=== PATIENT | male | born 1950 | race Caucasian/White ===

== ENCOUNTER 2020-04-19 18:12 | Observation (INO) | payer MEDICARE, SELFPAY ==
[2020-04-19] VITALS (10 sets, daily range): BP systolic 131–168; BP diastolic 85–107; PULSE 89–119; RESP 15–33; TEMP 36.9–37.6; O2SAT 96–99; BMI 26.9
--- NOTE | 2020-04-19 18:47 | ED_ITS ---
HPI - Male Genitourinary General Chief complaint: Urogenital-Male Stated complaint: difficulty going to pee Time Seen by Provider: 04/19/20 18:37 Source: patient and family Mode of arrival: Wheelchair Limitations: no limitations History of Present Illness HPI Narrative: Patient is a 69-year-old male with history of MS who is not currently being treated he is noncompliant with any medical problem he has presenting today with urinary retention. His daughter in-law who is also under states that he has had painful frequent urination. He last urinated around noon. He started having increasing abdominal pain and she brought him here to the emergency department bladder scan confirms about 900. Patient really denies any symptoms however [id number] states that he started taking amoxicillin family member gave it to him 3 days ago he has had 3 days of 500 3 times a day. Currently tachycardic afebrile and no complaints. Caregiver states that he lives alone and he does have family members twice a week who are able to help him. Since he began getting ill he has had significant increased weakness especially in his upper body. She reports him sitting on the toilet for more than 5 hours already once this week. Complaint: dysuria and other (Urinary retention) Onset (ago): day(s) (3) Related Data Previous Rx's Medication Instructions Recorded interferon beta-1a [Avonex] 30 mcg IM QWEEK #3 kit 03/15/17 Allergies Allergy/AdvReac Type Severity Reaction Status Date / Time No Known Drug Allergies Allergy Verified 04/19/20 18:35 Review of Systems Review of Systems Narrative: GENERAL: Denies chills, fatigue, malaise, fever, sweats, travel HEENT: Denies sinus pain, ear pain, sore throat, difficulty swallowing, neck pain RESPIRATORY: Denies dyspnea, cough, wheezing, hemoptysis, sputum. CARDIOVASCULAR: Denies chest pain, palpitations, orthopnea, edema GASTROINTESTINAL: Denies nausea, vomiting, abdominal pain, diarrhea, constipation, melena. see HPI MUSCULOSKELETAL: Denies weakness, joint pain, or bony pain SKIN: No rash, no erythema, no pruritus NEUROLOGIC: Denies weakness, dizziness, headache, numbness, change in speech, confusion PSYCHIATRIC: No concerning psychosocial issues. 12 point review of systems is negative except for those stated above and HPI Patient History Medical History (Updated 04/19/20 @ 23:24 [facility] Borderline hypertension Multiple sclerosis Surgical History (Updated 04/19/20 @ 23:24 by DENISE Gallegos) History of tonsillectomy Family History (Updated 04/19/20 @ 23:26 [facility] Mother Heart disease Father Natural of unknown etiology Social History household members: none Smoking Status: Never smoker Smoking Status: Never smoker alcohol intake frequency: other Substance Use Type: does not use Exam Initial Vital Signs Initial Vital Signs: Vital Signs Temperature 99.7 F H 04/19/20 18:32 Pulse Rate 119 H 04/19/20 18:32 Respiratory Rate 22 04/19/20 18:32 Blood Pressure 168/107 H 04/19/20 18:32 Pulse Oximetry 97 04/19/20 18:32 GENERAL: Alert pleasant 69-year-old male and in no acute distress. HEENT: Head atraumatic,EOMI, pupils reactive, face symmetric, moist mucous membranes CARDIOVASCULAR: Regular rate and rhythm without murmurs, rubs or gallops. RESPIRATORY: Breath sounds equal bilaterally, no wheezes rales or rhonchi. ABDOMEN: Soft, nontender. Normoactive bowel sounds all 4 quadrants. No guarding or rebound. : Le catheter now in place EXTREMITIES: Normal range of motion, no clubbing or edema. Neurovascularly intact NEUROLOGICAL: Alert and oriented x4.Normal gait and speech. Cranial nerves II through XII grossly intact. SKIN: Warm, dry, no laceration, no petechiae, no rashes or lesions. Course Orders Ordered: ED Orders 04/19/20 18:46 XR chest 1V Stat 04/19/20 18:51 COVID19 Stat Complete Blood Count AUTO DIFF Stat Comprehensive Metabolic Panel Stat Lactate (Lactic Acid) Stat Lipase Stat Partial Thromboplastin Time Stat Procalcitonin Stat Prothrombin Time INR Stat Troponin & CK Cardiac Panel Stat Urinalysis and Microscopic Stat Urine Culture Stat EKG-12 Lead Stat 04/19/20 19:19 Blood Culture Stat 04/19/20 21:24 Education, smoking cessation ONGOING Acetaminophen (Acetaminophen 325 Mg Tablet) 650 mg PO Q6HR PRN PRN Reason: Fever/Mild Pain (1-3) Enoxaparin Sodium (Enoxaparin 40 Mg/0.4 Ml Syringe) 40 mg SUBCUT DAILY ANGIE Sodium Chloride (Normal Saline 0.9%) 1,000 mls @ 100 mls/hr IV CONT ANGIE Last Admin: 04/19/20 22:47 Dose: 100 mls/hr Documented by: MARIA INES Ceftriaxone Sodium/Dextrose (Rocephin) 1 gm in 50 mls @ 100 mls/hr IV Q24H ANGIE Naloxone HCl (Naloxone 0.4 Mg/Ml Vial) 0.2 mg IV Q2MIN PRN PRN Reason: Opiate Reversal Ondansetron HCl (Ondansetron 4 Mg Odt) 4 mg PO Q8HR PRN PRN Reason: Nausea And Vomiting Sennosides (Sennosides 8.6 Mg Tablet) 17.2 mg PO BEDTIME ANGIE Discontinued Medications Sodium Chloride (Normal Saline 0.9%) 1,000 mls @ 1,000 mls/hr IV BOLUS ONE Stop: 04/19/20 19:34 Last Infusion: 04/19/20 20:33 Dose: 0 mls/hr Documented by: Admin: 04/19/20 19:14 Dose: 1,000 mls/hr Documented by: ELEAZAR Ceftriaxone Sodium/Dextrose (Rocephin) 1 gm in 50 mls @ 100 mls/hr IV NOW ONE Stop: 04/19/20 20:03 Last Infusion: 04/19/20 20:55 Dose: 0 mls/hr Documented by: Admin: 04/19/20 20:19 Dose: 100 mls/hr Documented by: ELEAZAR Vital Signs Vital signs: Vital Signs - 8 hr 04/19/20 18:32 04/19/20 19:15 04/19/20 19:30 Temperature 99.7 F H Pulse Rate 119 H 102 H 102 H Respiratory Rate 22 23 33 H Blood Pressure 168/107 H 155/104 H Pulse Oximetry 97 96 97 04/19/20 19:35 04/19/20 20:00 04/19/20 20:30 Temperature Pulse Rate 97 H 89 89 Respiratory Rate 19 17 16 Blood Pressure 161/85 H 150/97 H 154/96 H Pulse Oximetry 98 99 99 04/19/20 21:00 Temperature Pulse Rate 91 H Respiratory Rate 15 Blood Pressure 159/100 H Pulse Oximetry 98 MDM - Male Genitourinary Lab Data Attestation: I reviewed the patient's lab results. Result diagrams: 04/19/20 18:51 04/19/20 18:51 Labs: Lab Results 04/19/20 04/19/20 04/19/20 Range/Units 18:51 18:51 18:51 WBC 11.4 H (4.5-11.0) X10^3/uL RBC 5.12 (4.5-5.9) X10^6/uL Hgb 15.3 (13.5-17.5) g/dL Hct 45.3 (41-53) % MCV 88.5 (80-100) fL MCH 29.8 (26-34) PG MCHC 33.7 (30-36) % RDW 13.3 (11.6-14.8) % Plt Count 346 (150-400) X10^3/uL Neut % (Auto) 76.7 H (50-75) % Lymph % (Auto) 9.1 L (25-40) % [place] % (Auto) 11.8 (3-14) % Eos % (Auto) 1.9 L (2-4) % Baso % (Auto) 0.5 (0-2) % Neut # (Auto) 8700 H (8177-6744) /uL Lymph # (Auto) 1000 L (6326-2774) /uL [place] # (Auto) 1300 H (0-900) /uL Eos # (Auto) 200 (0-450) /uL Baso # (Auto) 100 (0-100) /uL PT 13.2 H (10.1-12.7) SECONDS INR 1.2 (0.9-1.3) APTT 35 (26.4-36.2) SECONDS Sodium 137 (137-145) mmol/L Potassium 3.8 (3.4-5.1) mmol/L Chloride 106 (98-107) mmol/L Carbon Dioxide 24 (22-32) mmol/L BUN 11 (9-20) mg/dL Creatinine 0.74 (0.66-1.25) mg/dL Estimated GFR > 60.0 (>60) mL/min BUN/Creatinine Ratio 14.9 (6-22) Glucose 122 H (80-110) mg/dL Lactate (0.7-2.1) mmol/L Calcium 8.9 (8.4-10.2) mg/dL Total Bilirubin 0.4 (0.2-1.3) mg/dL AST 52 (17-59) IU/L ALT 22 (<50) IU/L Alkaline Phosphatase 75 (38-126) U/L Total Creatine Kinase (55-170) U/L CK-MB (CK-2) (<2.37) ng/mL CK-MB (CK-2) Rel Index (1.5-5.0) % Troponin I (0.01-0.034) ng/mL Total Protein 7.0 (6.3-8.2) g/dL Albumin 3.8 (3.5-5.0) g/dL Globulin 3.2 (1.7-4.1) g/dL Albumin/Globulin Ratio 1.2 (1.0-2.8) Lipase < 10 L (23-300) U/L Procalcitonin 0.06 (<0.5) ng/mL Urine Color Urine Appearance Urine pH (4.5-8.0) Ur Specific [place] (1.000-1.035) Urine Protein (Negative) Urine Glucose (UA) (Negative) g/dL Urine Ketones (NEGATIVE) Urine Occult Blood (Negative) Urine Nitrate (Negative) Urine Bilirubin (NEGATIVE) Urine Urobilinogen (0.2) E.U./dL Ur Leukocyte Esterase (NEGATIVE) Urine RBC (0-5/HPF) Urine WBC (0-5/HPF) Ur Squamous Epith Cells (0-5/HPF) Urine Bacteria (None) Ur Culture Indicated? SARS-CoV-2 (PCR) (Negative) 04/19/20 04/19/20 04/19/20 Range/Units 18:51 18:51 18:51 WBC (4.5-11.0) X10^3/uL RBC (4.5-5.9) X10^6/uL Hgb (13.5-17.5) g/dL Hct (41-53) % MCV (80-100) fL MCH (26-34) PG MCHC (30-36) % RDW (11.6-14.8) % Plt Count (150-400) X10^3/uL Neut % (Auto) (50-75) % Lymph % (Auto) (25-40) % [place] % (Auto) (3-14) % Eos % (Auto) (2-4) % Baso % (Auto) (0-2) % Neut # (Auto) (9192-4520) /uL Lymph # (Auto) (8848-6484) /uL [place] # (Auto) (0-900) /uL Eos # (Auto) (0-450) /uL Baso # (Auto) (0-100) /uL PT (10.1-12.7) SECONDS INR (0.9-1.3) APTT (26.4-36.2) SECONDS Sodium (137-145) mmol/L Potassium (3.4-5.1) mmol/L Chloride (98-107) mmol/L Carbon Dioxide (22-32) mmol/L BUN (9-20) mg/dL Creatinine (0.66-1.25) mg/dL Estimated GFR (>60) mL/min BUN/Creatinine Ratio (6-22) Glucose (80-110) mg/dL Lactate 1.2 (0.7-2.1) mmol/L Calcium (8.4-10.2) mg/dL Total Bilirubin (0.2-1.3) mg/dL AST (17-59) IU/L ALT (<50) IU/L Alkaline Phosphatase (38-126) U/L Total Creatine Kinase 837 H (55-170) U/L CK-MB (CK-2) 1.72 (<2.37) ng/mL CK-MB (CK-2) Rel Index 0.2 L (1.5-5.0) % Troponin I < 0.012 (0.01-0.034) ng/mL Total Protein (6.3-8.2) g/dL Albumin (3.5-5.0) g/dL Globulin (1.7-4.1) g/dL Albumin/Globulin Ratio (1.0-2.8) Lipase (23-300) U/L Procalcitonin (<0.5) ng/mL Urine Color Yellow Urine Appearance Cloudy Urine pH 7.0 (4.5-8.0) Ur Specific [place] <=1.005 (1.000-1.035) Urine Protein Negative (Negative) Urine Glucose (UA) Negative (Negative) g/dL Urine Ketones Negative (NEGATIVE) Urine Occult Blood 1+ H (Negative) Urine Nitrate Negative (Negative) Urine Bilirubin Negative (NEGATIVE) Urine Urobilinogen 0.2 (0.2) E.U./dL Ur Leukocyte Esterase 3+ H (NEGATIVE) Urine RBC 5-10/hpf H (0-5/HPF) Urine WBC >100/hpf H (0-5/HPF) Ur Squamous Epith Cells 0-1 /hpf (0-5/HPF) Urine Bacteria Occasional (0-1) (None) Ur Culture Indicated? Specimen cultured SARS-CoV-2 (PCR) (Negative) 04/19/20 Range/Units 18:51 WBC (4.5-11.0) X10^3/uL RBC (4.5-5.9) X10^6/uL Hgb (13.5-17.5) g/dL Hct (41-53) % MCV (80-100) fL MCH (26-34) PG MCHC (30-36) % RDW (11.6-14.8) % Plt Count (150-400) X10^3/uL Neut % (Auto) (50-75) % Lymph % (Auto) (25-40) % [place] % (Auto) (3-14) % Eos % (Auto) (2-4) % Baso % (Auto) (0-2) % Neut # (Auto) (1639-5840) /uL Lymph # (Auto) (2455-9263) /uL [place] # (Auto) (0-900) /uL Eos # (Auto) (0-450) /uL Baso # (Auto) (0-100) /uL PT (10.1-12.7) SECONDS INR (0.9-1.3) APTT (26.4-36.2) SECONDS Sodium (137-145) mmol/L Potassium (3.4-5.1) mmol/L Chloride (98-107) mmol/L Carbon Dioxide (22-32) mmol/L BUN (9-20) mg/dL Creatinine (0.66-1.25) mg/dL Estimated GFR (>60) mL/min BUN/Creatinine Ratio (6-22) Glucose (80-110) mg/dL Lactate (0.7-2.1) mmol/L Calcium (8.4-10.2) mg/dL Total Bilirubin (0.2-1.3) mg/dL AST (17-59) IU/L ALT (<50) IU/L Alkaline Phosphatase (38-126) U/L Total Creatine Kinase (55-170) U/L CK-MB (CK-2) (<2.37) ng/mL CK-MB (CK-2) Rel Index (1.5-5.0) % Troponin I (0.01-0.034) ng/mL Total Protein (6.3-8.2) g/dL Albumin (3.5-5.0) g/dL Globulin (1.7-4.1) g/dL Albumin/Globulin Ratio (1.0-2.8) Lipase (23-300) U/L Procalcitonin (<0.5) ng/mL Urine Color Urine Appearance Urine pH (4.5-8.0) Ur Specific [place] (1.000-1.035) Urine Protein (Negative) Urine Glucose (UA) (Negative) g/dL Urine Ketones (NEGATIVE) Urine Occult Blood (Negative) Urine Nitrate (Negative) Urine Bilirubin (NEGATIVE) Urine Urobilinogen (0.2) E.U./dL Ur Leukocyte Esterase (NEGATIVE) Urine RBC (0-5/HPF) Urine WBC (0-5/HPF) Ur Squamous Epith Cells (0-5/HPF) Urine Bacteria (None) Ur Culture Indicated? SARS-CoV-2 (PCR) Negative (Negative) Imaging Data Chest x-ray: Radiologist's Impression: ROCEDURE: XR CHEST 1V INDICATIONS: fever TECHNIQUE: One view of the chest was acquired. COMPARISON: None. FINDINGS: Surgical changes and devices: None. Lungs and pleura: Lungs are clear. No pleural effusions or pneumothorax. Mediastinum: Mediastinal contours appear normal. Heart size is normal. Tortuous aorta. Bones and chest wall: No suspicious bony lesions. Overlying soft tissues appear unremarkable. IMPRESSION: No acute cardiopulmonary disease. Dictated by: Sheryl Valencia M.D. on 04/19/2020 at 19:33 ECG Data Attestation: I personally reviewed and interpreted this ECG as follows: Prior ECG tracings: not available for review Interpretation: Normal sinus rhythm rate 106 p.r. interval 170 P QRS is [address] changes or T-wave inversions low voltage noted no prior to compare MDM Narrative Medical decision making narrative: The patient overall does not appear septic however he has gotten progressively weaker is since his UTI and now urinary retention. Patient lives alone there is no home health currently, or home physical therapy, something that organizational development manager and family definitely interested in. Due to patient's MS and significant weakness do recommend at least observation with UTI and PT to evaluate. Fransisca ELDRIDGE updated patient's symptoms test results and agrees with observation Discharge Plan Departure Patient Disposition: Admitted as Observation Clinical Impression: Multiple sclerosis, Urinary tract infection Admit Date/Time: 04/19/20 21:26 Admit Provider: Fransisca Araujo
[2020-04-19 19:05] LABS: Add Manual Diff / Slide Review NO; Basophils Absolute Auto 100 /uL (0-100); Basophils Percent Auto 0.5 % (0-2); Eosinophils Absolute Auto 200 /uL (0-450); Eosinophils Percent Auto 1.9 % (2-4); Hematocrit 45.3 % (41-53); Hemoglobin 15.3 g/dL (13.5-17.5); Lymphocytes Absolute Auto 1000 /uL (1100-4500); Lymphocytes Percent Auto 9.1 % (25-40); Mean Corpuscular HGB Conc 33.7 % (30-36); Mean Corpuscular Hemoglobin 29.8 PG (26-34); Mean Corpuscular Volume 88.5 fL (80-100); Monocytes Absolute Auto 1300 /uL (0-900); Monocytes Percent Auto 11.8 % (3-14); Neutrophils Absolute Auto 8700 /uL (1500-7000); Neutrophils Percent Auto 76.7 % (50-75); Platelet Count 346 X10^3/uL (150-400); Red Blood Cell Count 5.12 X10^6/uL (4.5-5.9); Red Cell Distribution Width 13.3 % (11.6-14.8); White Blood Cell Count 11.4 X10^3/uL (4.5-11.0)
[2020-04-19 19:09] LABS: Appearance Urine UA CLOUDY; Bilirubin Urine UA NEGATIVE (NEGATIVE); Color Urine UA YELLOW; Glucose Urine UA NEGATIVE (Negative); Ketones Urine UA NEGATIVE (NEGATIVE); Leukocyte Esterase Urine UA 3+ (NEGATIVE); Nitrite Urine UA NEGATIVE (Negative); Occult Blood Urine UA 1+ (Negative); Protein Urine UA NEGATIVE (Negative); Specific Gravity Urine UA <=1.005 (1.000-1.035); Urobilinogen Urine UA 0.2 E.U./dL (0.2)
[2020-04-19 19:12] LABS: INR 1.2 (0.9-1.3); Prothrombin Time 13.2 SECONDS (10.1-12.7)
[2020-04-19] MEDS: SODIUM CHLORIDE 0.9% 1,000 ML 1000 ML IV (19:14)
[2020-04-19 19:15] LABS: PTT Partial Thromboplastin Tim 35 SECONDS (26.4-36.2)
[2020-04-19 19:20] LABS: Lactate (Lactic Acid) 1.2 mmol/L (0.7-2.1)
[2020-04-19 19:21] LABS: Creatine Kinase 837 U/L (55-170)
[2020-04-19 19:23] LABS: Alanine Aminotransferase 22 IU/L (<50); Albumin 3.8 g/dL (3.5-5.0); Albumin Globulin Ratio 1.2 (1.0-2.8); Alkaline Phosphatase 75 U/L (38-126); Aspartate Aminotransferase 52 IU/L (17-59); BUN Creatinine Ratio 14.9 (6-22); Bacteria Urine Occasional (0-1); Bilirubin Total 0.4 mg/dL (0.2-1.3); Blood Urea Nitrogen 11 mg/dL (9-20); Calcium 8.9 mg/dL (8.4-10.2); Carbon Dioxide 24 mmol/L (22-32); Chloride 106 mmol/L (98-107); Culture Indicated Urine Specimen Cultured; Estimated Glomerular Filt Rate > 60.0 mL/min (>60); Globulin 3.2 g/dL (1.7-4.1); Glucose 122 mg/dL (80-110); HEMOLYSIS < 15 (0-50); Potassium 3.8 mmol/L (3.4-5.1); RBC Urine 5-10/HPF (0-5/HPF); Sodium 137 mmol/L (137-145); Squamous Epithelial Cell Urine 0-1 /HPF (0-5/HPF); WBC Urine >100/HPF (0-5/HPF)
[2020-04-19 19:24] LABS: Lipase < 10 U/L (23-300)
[2020-04-19 19:33] LABS: COVID19 -Nasal RAPID Negative (Negative); Troponin I < 0.012 ng/mL (0.01-0.034)
[2020-04-19 19:38] LABS: Procalcitonin 0.06 ng/mL (<0.5)
[2020-04-19] MEDS: LIDOCAINE 2% (UROJET) 5 ML GEL (19:52)
[2020-04-19] MEDS: CEFTRIAXONE 1 GM/50 ML FROZ.PIGGY IV (20:19)
[2020-04-19 20:38] LABS: CKMB % Relative Index 0.2 % (1.5-5.0); Creatine Kinase MB 1.72 ng/mL (<2.37)
--- NOTE | 2020-04-19 21:37 | P.HP_ITS ---
History of Present Illness History of Present Illness Date Patient Seen: 04/19/20 Time Patient Seen: 21:42 Chief complaint: difficulty going to pee Narrative: Patient is a 69-year-old male Williams Marinelli who presents to the ED with urinary retention patient has a 35yr history of MS of which he is noncompliant, patient reports that in the past he had been treated and diagnosed for borderline hypertension but was advised he no longer needed to manage with medication, patient denies any other medical history. In the ED his daughter in-law (patient's respiratory care practitioner 1 day a week/alternates with an additional family member 1 day a week) who states that he has had painful frequent urination. He last urinated around noon. He started having increasing abdominal pain and she brought him here to the emergency department bladder scan confirms about 900. Patient really denies any symptoms however [id number] states that he started taking amoxicillin family member gave it to him 3 days ago he has had 3 days of 500 3 times a day. When ED provider went to discharge patient home his respiratory care practitioner [id number] stated that he was unsafe to return home at this time. Upon admit to the floor patient appears to be a poor and/or cantankerous historian, he states that he is as healthy as a J Bird and he does not like the medical community. He reports last urinated 8:00 a.m. this morning, he denies that he has any difficulty with emptying, urinary retention, or prostate issues previously. He denies any burning pain or difficulty with urination. Patient denies chills body aches fever nausea vomiting diarrhea, notes last BM was this morning normal denies constipation, denies bowel incontinence or urinary incontinence, chest pain, shortness of breath, or headache, changes in vision new weakness, numbness or tingling. And patient denies recent injury or trauma. Patient's recall of HPI he seems to contradict information provided in the ED, and even during interview patient's statements contradicted each other. Patient states that several weeks ago he fell in the bathroom was stuck on the bathroom floor for approximately 5 hours, since that time he has been following approximately 2 times a week, patient uses a power chair at home to get around. He states that he had been taking care have his own ADLs prior to this fall, at which time he then requested that his [id number] and another family member provide in-home assistance 2 days a week. Patient states that he takes no home medications. Upon admit patient is tachycardic, afebrile, and hypertensive, vitals temp 99.7?, BP 159/100, HR 89, R 16, O2 sat 99% on room air. Labs WBC 11.4 withNeut # 8700, glucose 122, total creatinine kinase 837, lipase negative, procalcitonin negative, CK-MB negative, troponin negative, urinalysis: Urine occult blood 1 positive, leuko Esterase 3+, RBC 5-10, WBC >100-culture pending. CXR: No acute cardiopulmonary disease. Le placed in ER, output approximately 2 L. Patient History Medical History (Updated 04/19/20 @ 23:24 by JERRELL Gallegos-BURKE) Borderline hypertension Multiple sclerosis Surgical History (Updated 04/19/20 @ 23:24 by JERRELL GallegosBURKE) History of tonsillectomy Family & Social History Family History (Updated 04/19/20 @ 23:26 by JERRELL GallegosBURKE) Mother Heart disease Father Natural of unknown etiology Safety & Behavioral: Feels Safe in Current Yes Environment lives alone, has 2 family member Caretakers that come in 2 days a week for assistance with ADLs. Been Physically Hurt or No Threatened By a Person Tobacco & Substance use: Smoking Status smokes a pack of cigars daily alcohol intake frequency None Substance Use Type None Meds Home Medications and Allergies Home Medications Medication Instructions Recorded Confirmed Type interferon beta-1a [Avonex] 30 mcg IM QWEEK #3 kit 03/15/17 Rx Allergies Allergy/AdvReac Type Severity Reaction Status Date / Time No Known Drug Allergies Allergy Verified 04/19/20 18:35 Review of Systems Review of Systems ROS: Yes All systems reviewed with the patient and are negative except as otherwise documented Genitourinary Genitourinary: Reports system reviewed and no additional complaints, except as documented and Reports difficulty urinating Musculoskeletal Musculoskeletal: Reports myalgias and Reports muscle weakness Exam Vital Signs (past 8 hours): - 04/19/20 18:32 04/19/20 19:15 04/19/20 19:30 Temperature 99.7 F H Pulse Rate 119 H 102 H 102 H Respiratory Rate 22 23 33 H Blood Pressure 168/107 H 155/104 H Pulse Oximetry 97 96 97 04/19/20 19:35 04/19/20 20:00 04/19/20 20:30 Temperature Pulse Rate 97 H 89 89 Respiratory Rate 19 17 16 Blood Pressure 161/85 H 150/97 H 154/96 H Pulse Oximetry 98 99 99 04/19/20 21:00 Temperature Pulse Rate 91 H Respiratory Rate 15 Blood Pressure 159/100 H Pulse Oximetry 98 Oxygen Delivery Method Room Air Narrative Exam Narrative: General: Patient is a well-developed, well-nourished cantankerous male in no distress at this time. HEENT: Normocephalic, atraumatic, extraocular muscles intact, oral pharynx is clear and mucous membranes are moist. Note slightly slurred speech-patient's baseline. Neck is supple and symmetric, trachea is midline, no adenopathy, no thyroid enlargement, nontender, no masses palpated. Negative for JVD Chest: Normal AP diameter and contour without kyphoscoliosis, no nasal flaring, retractions, or tachypneic labored Lungs: Auscultation of all lung dawson are clear without adventitious sounds, wheezes, rhonchi, or rales. Bilateral bases are coarse Cardio: S1 & S2 with regular rate and rhythm without murmur, rubs, or gallops, no carotid bruit, no cardiac pulsations present. Abdomen: Soft, tenderness to right lower quadrant with palpation, negative for organomegaly, or masses. Bowel sounds are hypoactive present in all 4 quadrants without guarding or rebound, no suprapubic tenderness, no CVA tenderness. Le catheter in place and draining. Musculoskeletal: Muscle strength and tone are equal within normal limits, no deformity, crepitus, effusions, cyanosis, clubbing present. Bilateral nonpitting edema, equal to bilateral ankles and feet. Full range of motion intact radial and pedal pulses are normal. Skin: Warm dry and intact without rashes, ulcerations or petechiae. Neuro: Alert and orientated x3, strength is +5/5 in all extremities, sensation to touch intact, no gross deficits noted of cranial nerves. Psych: Patient has a well-kept appearance, appropriate affect, mental status attitude thought context and judgment are appropriate for age. Objective Labs Result Diagrams: 04/19/20 18:51 04/19/20 18:51 Labs: Laboratory Results - last 24 hr 04/19/20 04/19/20 04/19/20 18:51 18:51 18:51 WBC 11.4 H RBC 5.12 Hgb 15.3 Hct 45.3 MCV 88.5 MCH 29.8 MCHC 33.7 RDW 13.3 Plt Count 346 Neut % (Auto) 76.7 H Lymph % (Auto) 9.1 L [place] % (Auto) 11.8 Eos % (Auto) 1.9 L Baso % (Auto) 0.5 Neut # (Auto) 8700 H Lymph # (Auto) 1000 L [place] # (Auto) 1300 H Eos # (Auto) 200 Baso # (Auto) 100 PT 13.2 H INR 1.2 APTT 35 Sodium 137 Potassium 3.8 Chloride 106 Carbon Dioxide 24 BUN 11 Creatinine 0.74 Estimated GFR > 60.0 BUN/Creatinine Ratio 14.9 Glucose 122 H Lactate Calcium 8.9 Total Bilirubin 0.4 AST 52 ALT 22 Alkaline Phosphatase 75 Total Creatine Kinase CK-MB (CK-2) CK-MB (CK-2) Rel Index Troponin I Total Protein 7.0 Albumin 3.8 Globulin 3.2 Albumin/Globulin Ratio 1.2 Lipase < 10 L Procalcitonin 0.06 Urine Color Urine Appearance Urine pH Ur Specific [place] Urine Protein Urine Glucose (UA) Urine Ketones Urine Occult Blood Urine Nitrate Urine Bilirubin Urine Urobilinogen Ur Leukocyte Esterase Urine RBC Urine WBC Ur Squamous Epith Cells Urine Bacteria Ur Culture Indicated? SARS-CoV-2 (PCR) 04/19/20 04/19/20 04/19/20 18:51 18:51 18:51 WBC RBC Hgb Hct MCV MCH MCHC RDW Plt Count Neut % (Auto) Lymph % (Auto) [place] % (Auto) Eos % (Auto) Baso % (Auto) Neut # (Auto) Lymph # (Auto) [place] # (Auto) Eos # (Auto) Baso # (Auto) PT INR APTT Sodium Potassium Chloride Carbon Dioxide BUN Creatinine Estimated GFR BUN/Creatinine Ratio Glucose Lactate 1.2 Calcium Total Bilirubin AST ALT Alkaline Phosphatase Total Creatine Kinase 837 H CK-MB (CK-2) 1.72 CK-MB (CK-2) Rel Index 0.2 L Troponin I < 0.012 Total Protein Albumin Globulin Albumin/Globulin Ratio Lipase Procalcitonin Urine Color Yellow Urine Appearance Cloudy Urine pH 7.0 Ur Specific [place] <=1.005 Urine Protein Negative Urine Glucose (UA) Negative Urine Ketones Negative Urine Occult Blood 1+ H Urine Nitrate Negative Urine Bilirubin Negative Urine Urobilinogen 0.2 Ur Leukocyte Esterase 3+ H Urine RBC 5-10/hpf H Urine WBC >100/hpf H Ur Squamous Epith Cells 0-1 /hpf Urine Bacteria Occasional (0-1) Ur Culture Indicated? Specimen cultured SARS-CoV-2 (PCR) 04/19/20 18:51 WBC RBC Hgb Hct MCV MCH MCHC RDW Plt Count Neut % (Auto) Lymph % (Auto) [place] % (Auto) Eos % (Auto) Baso % (Auto) Neut # (Auto) Lymph # (Auto) [place] # (Auto) Eos # (Auto) Baso # (Auto) PT INR APTT Sodium Potassium Chloride Carbon Dioxide BUN Creatinine Estimated GFR BUN/Creatinine Ratio Glucose Lactate Calcium Total Bilirubin AST ALT Alkaline Phosphatase Total Creatine Kinase CK-MB (CK-2) CK-MB (CK-2) Rel Index Troponin I Total Protein Albumin Globulin Albumin/Globulin Ratio Lipase Procalcitonin Urine Color Urine Appearance Urine pH Ur Specific [place] Urine Protein Urine Glucose (UA) Urine Ketones Urine Occult Blood Urine Nitrate Urine Bilirubin Urine Urobilinogen Ur Leukocyte Esterase Urine RBC Urine WBC Ur Squamous Epith Cells Urine Bacteria Ur Culture Indicated? SARS-CoV-2 (PCR) Negative Assessment & Plan Assessment & Plan narrative: This patient requires acute care inpatient hospital management for acute urinary retention, acute complicated UTI, and acute weakness. After failing outpatient management of urinary symptoms. The patient is at much higher risk for medical and surgical complications because of his multiple sclerosis. These factors increase the difficulty and complexity of medical and surgical interventions and increases the chances of poor outcomes such as morbidity and mortality. . 1. Acute UTI, complicated, stable condition, secondary to acute urinary retention resulting in Weakness(impaired mobility), acute on chronic, Exacerbation of multiple sclerosis condition, present on admission. This presentation is putting the patient at risk of serious injury/fall/septic shock. Rule out sepsis, cystitis vs. pyelonephritis vs. epididymitis vs. prostatitis vs.nephrolithiasis. Urinalysis collected from Le catheter placement urine output 2 L. Urinalysis: Urine occult blood 1 positive, leuko Esterase 3+, RBC 5-10, WBC >100-culture pending. Upon admit patient is tachycardic, afebrile, and hypertensive, vitals temp 99.7?, BP 159/100, HR 89, R 16, O2 sat 99% on room air. Labs WBC 11.4 withNeut # 8700, glucose 122, total creatinine kinase 837, lipase negative, procalcitonin negative, CK-MB negative, troponin negative. CXR: No acute cardiopulmonary disease. -patient's sofa score 0 on admission -patient admited fo [facility], [facility], vital signs q.4 hours, intake and output monitored Q shift, manage Le catheter, weight measure daily, diet: Regular following bed side swallow screen. -IV fluid normal saline 100 cc/HR, gentle rehydration- reassess in am and determine to increase fluids or restriction depending on volume status.92%-O2 saturation -patient received 1000 cc IV bolus in ER and 1 g of Rocephin, and Le catheter was placed, activity as tolerated, strict I&O, daily weights, call for urinary output less than 200 mL per shift, temp >38.5, systolic <100 or Heart rate >110 or an SaO2 less than 92%, -labs ordered: A.m. to include PSA daily: CBC, BMP, blood cultures x2 and urine culture pending -will continue Rocephin 1 g Q 24 hours, if patient not improving in 48-72 hours will consider ordering: labs UA with microscopy, Mag, phosphate, FeNa, urinary Na, urine osmolality, urine specific gravity, and urine sediment, renal/ abd ominal ultrasound and/or CT abdominal pelvis -Discharge likely home tomorrow : referral for home physical therapy, neurology, and urology follow up. -prevention vaccine: Recommend patient has yearly flu vaccine, shingles, pneumonia, COVID-19 -consults ordered physical therapy due to impaired mobility issues r/t MS. 2. Multiple sclerosis, acute on chronic, condition status unknown as patient is not compliant, present on admission. -patient takes no medications. 3. Tobacco abuse, chronic, cigars, present on admission -encouraged smoking cessation. . Code status: DNR Surrogate/plan of care: Diane Clark (daughter) COVID PCR:Negative VTE prophylaxis: Lovenox 40 mg and SCDs Scores GCS [place] coma scale eye opening: Spontaneous Niraj coma scale verbal response: Orientated Niraj coma scale motor response: Obey commands Niraj coma scale total score: 15 SOFA PaO2/FIO2: >=400 mmHg Platelets: >= 150 Bilirubin: < 1.2 mg/dL Hypotension: MAP >= 70 mmHg [place] Coma Scale: 15 Renal: < 1.2 mg/dL SOFA Score: 0 Wells' Criteria for PE Clinical signs and symptoms of DVT: No PE is #1 Dx or equally likely: No Heart rate > 100: No Immobilization at least 3 days or surg in previous 4 weeks: Yes History of PE or DVT: No Hemoptysis: No Malignancy w/Treatment within 6 months or palliative: No Wells' PE Score total: 1.5
[2020-04-19] MEDS: SODIUM CHLORIDE 0.9% 1,000 ML 100 ML IV (22:47)
--- NOTE | 2020-04-19 23:52 | PC.ADMIT ---
[address] 35[address] Admission Note: The patient,Williams Marinelli,69 y/o, was given written information regarding hospital policies, unit procedures and contact persons. Patient's smoking status: Never smoker. Pt arrived from ED at approx 2125. A/O. able to slide over to bed from stretcher. Oriented to room and call system. SCD's on. Telemetry on. IVF per APR. Provider in for exam. Bed alarm on. Call light within reach. Vital Signs - 8 hr 04/19/20 18:32 04/19/20 19:15 04/19/20 19:30 Temperature 99.7 F H Pulse Rate 119 H 102 H 102 H Respiratory Rate 22 23 33 H Blood Pressure 168/107 H 155/104 H Pulse Oximetry 97 96 97 04/19/20 19:35 04/19/20 20:00 04/19/20 20:30 Temperature Pulse Rate 97 H 89 89 Respiratory Rate 19 17 16 Blood Pressure 161/85 H 150/97 H 154/96 H Pulse Oximetry 98 99 99 04/19/20 21:00 04/19/20 22:15 04/19/20 22:51 Temperature 98.6 F Pulse Rate 91 H 94 H Respiratory Rate 15 18 Blood Pressure 159/100 H 131/90 Pulse Oximetry 98 98 98 04/19/20 23:10 Temperature 98.5 F Pulse Rate 95 H Respiratory Rate 18 Blood Pressure 137/91 H Pulse Oximetry 98
[2020-04-20 02:00] VITALS: O2SAT 98
[2020-04-20 04:59] LABS: Add Manual Diff / Slide Review NO; Basophils Absolute Auto 100 /uL (0-100); Basophils Percent Auto 1.1 % (0-2); Eosinophils Absolute Auto 300 /uL (0-450); Eosinophils Percent Auto 3.6 % (2-4); Hematocrit 39.4 % (41-53); Hemoglobin 13.4 g/dL (13.5-17.5); Lymphocytes Absolute Auto 1200 /uL (1100-4500); Lymphocytes Percent Auto 15.7 % (25-40); Mean Corpuscular HGB Conc 33.9 % (30-36); Mean Corpuscular Hemoglobin 30.1 PG (26-34); Mean Corpuscular Volume 88.8 fL (80-100); Monocytes Absolute Auto 1100 /uL (0-900); Monocytes Percent Auto 14.3 % (3-14); Neutrophils Absolute Auto 4800 /uL (1500-7000); Neutrophils Percent Auto 65.3 % (50-75); Platelet Count 306 X10^3/uL (150-400); Red Blood Cell Count 4.44 X10^6/uL (4.5-5.9); Red Cell Distribution Width 13.6 % (11.6-14.8); White Blood Cell Count 7.4 X10^3/uL (4.5-11.0)
[2020-04-20 05:01] VITALS: BP 127/89; PULSE 78; RESP 18; TEMP 36.2
[2020-04-20 05:03] LABS: BUN Creatinine Ratio 13.2 (6-22); Blood Urea Nitrogen 9 mg/dL (9-20); Calcium 8.2 mg/dL (8.4-10.2); Carbon Dioxide 29 mmol/L (22-32); Chloride 108 mmol/L (98-107); Estimated Glomerular Filt Rate > 60.0 mL/min (>60); Glucose 108 mg/dL (80-110); HEMOLYSIS < 15 (0-50); Potassium 3.7 mmol/L (3.4-5.1); Sodium 140 mmol/L (137-145)
[2020-04-20 05:33] LABS: Prostate Specific Antigen 7.65 ng/mL (0.10-4.00)
[2020-04-20 06:00] VITALS: O2SAT 98
[2020-04-20 08:00] VITALS: BP 142/87; PULSE 79; RESP 19; TEMP 37.1; O2SAT 95
[2020-04-20] MEDS: CEFTRIAXONE 1 GM/50 ML FROZ.PIGGY IV (08:47)
[2020-04-20] MEDS: ENOXAPARIN 40 MG/0.4 ML SYRINGE SUBCUT (08:47)
[2020-04-20] MEDS: SODIUM CHLORIDE 0.9% 1,000 ML 100 ML IV (08:47)
--- NOTE | 2020-04-20 10:04 | P.DS_ITS ---
History of Present Illness History of Present Illness Date Patient Seen: 04/20/20 Chief complaint: difficulty going to pee Narrative: Patient is a 69-year-old male Williams Marinelli who presents to the ED with urinary retention patient has a 35yr history of MS of which he is noncompliant, patient reports that in the past he had been treated and diagnosed for borderline hypertension but was advised he no longer needed to manage with medication, patient denies any other medical history. In the ED his daughter in-law (patient's clinical psychologist private practice 1 day a week/alternates with an additional family member 1 day a week) who states that he has had painful frequent urination. He last urinated around noon. He started having increasing abdominal pain and she brought him here to the emergency department bladder scan confirms about 900. Patient really denies any symptoms however [id number] states that he started taking amoxicillin family member gave it to him 3 days ago he has had 3 days of 500 3 times a day. When ED provider went to discharge patient home his clinical psychologist private practice [id number] stated that he was unsafe to return home at this time. Upon admit to the floor patient appears to be a poor and/or cantankerous historian, he states that he is as healthy as a J Bird and he does not like the medical community. He reports last urinated 8:00 a.m. this morning, he denies that he has any difficulty with emptying, urinary retention, or prostate issues previously. He denies any burning pain or difficulty with urination. Patient denies chills body aches fever nausea vomiting diarrhea, notes last BM was this morning normal denies constipation, denies bowel incontinence or urinary incontinence, chest pain, shortness of breath, or headache, changes in vision new weakness, numbness or tingling. And patient denies recent injury or trauma. Patient's recall of HPI he seems to contradict information provided in the ED, and even during interview patient's statements contradicted each other. Patient states that several weeks ago he fell in the bathroom was stuck on the bathroom floor for approximately 5 hours, since that time he has been following approximately 2 times a week, patient uses a power chair at home to get around. He states that he had been taking care have his own ADLs prior to this fall, at which time he then requested that his [id number] and another family member provide in-home assistance 2 days a week. Patient states that he takes no home medications. Upon admit patient is tachycardic, afebrile, and hypertensive, vitals temp 99.7?, BP 159/100, HR 89, R 16, O2 sat 99% on room air. Labs WBC 11.4 withNeut # 8700, glucose 122, total creatinine kinase 837, lipase negative, procalcitonin negative, CK-MB negative, troponin negative, urinalysis: Urine occult blood 1 positive, leuko Esterase 3+, RBC 5-10, WBC >100-culture pending. CXR: No acute cardiopulmonary disease. Hsu placed in ER, output approximately 2 L. Discharge Providers Provider Date of admission: 04/19/20 21:26 Discharge Date: 04/20/20 Consults: 04/19/20 21:35 Consult to Physical Therapy Evaluate & Treat Comment: Non compliant MS patient -home PT Physician Instructions: Evaluate and Treat Discharge provider: Radha Kohli MD Summary Hospital Course Discharge Diagnosis: 1. urinary retention 2. urinary tract infection secondary to Gram-negative Rods, ID pending 3. multiple sclerosis 4. hypertension currently not treated Hospital Course: patient was admitted to the hospital for urinary retention. He was found have 2 L in his bladder in the emergency department. Hsu catheter was placed and the patient felt significantly improved. His urine culture grew Gram-negative rods. He was started on IV ceftriaxone. Patient had no fever or white count and was deemed appropriate for return home. The patient will need to be trained on a Hsu management. His son's girlfriend has been his caregiver. There was concern regarding whether that arrangement will continue to be available for his home management. We will ask social work to increase and improve his home care. Patient is deemed appropriate for discharge home. He has been adamant that he would like to discharge today. Status at Discharge Cognitive/behavioral status at discharge: oriented Functional status at discharge: wheelchair bound Overall status at discharge: patient is back to baseline Time Spent with Patient Time spent: Less than 30 minutes Exam Vital Signs (past 8 hours): - 04/20/20 05:01 04/20/20 06:00 04/20/20 08:00 Temperature 97.1 F L 98.7 F Pulse Rate 78 79 Respiratory Rate 18 19 Blood Pressure 127/89 142/87 H Pulse Oximetry 98 95 Oxygen Delivery Method Room Air Oxygen Flow Rate 0 Narrative Exam Narrative: Pleasant male in no acute distress lungs: Clear to auscultation cardiac exam: Regular rate rhythm normal S1-S2 abdomen: Soft nontender nondistended, Hsu in place extremity: No edema Objective Labs Result Diagrams: 04/20/20 04:35 04/20/20 04:35 Labs: Laboratory Results - last 24 hr 04/19/20 04/19/20 04/19/20 18:51 18:51 18:51 WBC 11.4 H RBC 5.12 Hgb 15.3 Hct 45.3 MCV 88.5 MCH 29.8 MCHC 33.7 RDW 13.3 Plt Count 346 Neut % (Auto) 76.7 H Lymph % (Auto) 9.1 L Howell % (Auto) 11.8 Eos % (Auto) 1.9 L Baso % (Auto) 0.5 Neut # (Auto) 8700 H Lymph # (Auto) 1000 L Howell # (Auto) 1300 H Eos # (Auto) 200 Baso # (Auto) 100 PT 13.2 H INR 1.2 APTT 35 Sodium 137 Potassium 3.8 Chloride 106 Carbon Dioxide 24 BUN 11 Creatinine 0.74 Estimated GFR > 60.0 BUN/Creatinine Ratio 14.9 Glucose 122 H Lactate Calcium 8.9 Total Bilirubin 0.4 AST 52 ALT 22 Alkaline Phosphatase 75 Total Creatine Kinase CK-MB (CK-2) CK-MB (CK-2) Rel Index Troponin I Total Protein 7.0 Albumin 3.8 Globulin 3.2 Albumin/Globulin Ratio 1.2 Lipase < 10 L Prostate Specific Ag Procalcitonin 0.06 Urine Color Urine Appearance Urine pH Ur Specific Kelso Urine Protein Urine Glucose (UA) Urine Ketones Urine Occult Blood Urine Nitrate Urine Bilirubin Urine Urobilinogen Ur Leukocyte Esterase Urine RBC Urine WBC Ur Squamous Epith Cells Urine Bacteria Ur Culture Indicated? SARS-CoV-2 (PCR) 04/19/20 04/19/20 04/19/20 18:51 18:51 18:51 WBC RBC Hgb Hct MCV MCH MCHC RDW Plt Count Neut % (Auto) Lymph % (Auto) Howell % (Auto) Eos % (Auto) Baso % (Auto) Neut # (Auto) Lymph # (Auto) Howell # (Auto) Eos # (Auto) Baso # (Auto) PT INR APTT Sodium Potassium Chloride Carbon Dioxide BUN Creatinine Estimated GFR BUN/Creatinine Ratio Glucose Lactate 1.2 Calcium Total Bilirubin AST ALT Alkaline Phosphatase Total Creatine Kinase 837 H CK-MB (CK-2) 1.72 CK-MB (CK-2) Rel Index 0.2 L Troponin I < 0.012 Total Protein Albumin Globulin Albumin/Globulin Ratio Lipase Prostate Specific Ag Procalcitonin Urine Color Yellow Urine Appearance Cloudy Urine pH 7.0 Ur Specific Kelso <=1.005 Urine Protein Negative Urine Glucose (UA) Negative Urine Ketones Negative Urine Occult Blood 1+ H Urine Nitrate Negative Urine Bilirubin Negative Urine Urobilinogen 0.2 Ur Leukocyte Esterase 3+ H Urine RBC 5-10/hpf H Urine WBC >100/hpf H Ur Squamous Epith Cells 0-1 /hpf Urine Bacteria Occasional (0-1) Ur Culture Indicated? Specimen cultured SARS-CoV-2 (PCR) 04/19/20 04/20/20 04/20/20 18:51 04:35 04:35 WBC 7.4 RBC 4.44 L Hgb 13.4 L Hct 39.4 L MCV 88.8 MCH 30.1 MCHC 33.9 RDW 13.6 Plt Count 306 Neut % (Auto) 65.3 Lymph % (Auto) 15.7 L Howell % (Auto) 14.3 H Eos % (Auto) 3.6 Baso % (Auto) 1.1 Neut # (Auto) 4800 Lymph # (Auto) 1200 Howell # (Auto) 1100 H Eos # (Auto) 300 Baso # (Auto) 100 PT INR APTT Sodium 140 Potassium 3.7 Chloride 108 H Carbon Dioxide 29 BUN 9 Creatinine 0.68 Estimated GFR > 60.0 BUN/Creatinine Ratio 13.2 Glucose 108 Lactate Calcium 8.2 L Total Bilirubin AST ALT Alkaline Phosphatase Total Creatine Kinase CK-MB (CK-2) CK-MB (CK-2) Rel Index Troponin I Total Protein Albumin Globulin Albumin/Globulin Ratio Lipase Prostate Specific Ag Procalcitonin Urine Color Urine Appearance Urine pH Ur Specific Kelso Urine Protein Urine Glucose (UA) Urine Ketones Urine Occult Blood Urine Nitrate Urine Bilirubin Urine Urobilinogen Ur Leukocyte Esterase Urine RBC Urine WBC Ur Squamous Epith Cells Urine Bacteria Ur Culture Indicated? SARS-CoV-2 (PCR) Negative 04/20/20 04:35 WBC RBC Hgb Hct MCV MCH MCHC RDW Plt Count Neut % (Auto) Lymph % (Auto) Howell % (Auto) Eos % (Auto) Baso % (Auto) Neut # (Auto) Lymph # (Auto) Howell # (Auto) Eos # (Auto) Baso # (Auto) PT INR APTT Sodium Potassium Chloride Carbon Dioxide BUN Creatinine Estimated GFR BUN/Creatinine Ratio Glucose Lactate Calcium Total Bilirubin AST ALT Alkaline Phosphatase Total Creatine Kinase CK-MB (CK-2) CK-MB (CK-2) Rel Index Troponin I Total Protein Albumin Globulin Albumin/Globulin Ratio Lipase Prostate Specific Ag 7.65 H Procalcitonin Urine Color Urine Appearance Urine pH Ur Specific Kelso Urine Protein Urine Glucose (UA) Urine Ketones Urine Occult Blood Urine Nitrate Urine Bilirubin Urine Urobilinogen Ur Leukocyte Esterase Urine RBC Urine WBC Ur Squamous Epith Cells Urine Bacteria Ur Culture Indicated? SARS-CoV-2 (PCR) [facility] Medical History (Updated 04/19/20 @ 23:24 by JERRELL Gallegos-BURKE) Borderline hypertension Multiple sclerosis Surgical History (Updated 04/19/20 @ 23:24 by DENISE Gallegos) History of tonsillectomy Family History (Updated 04/19/20 @ 23:26 by DENISE Gallegos) Mother Heart disease Father Natural of unknown etiology Social History household members: none Smoking Status: Never smoker Discharge Assessment & Plan Assessment and Plan Assessment: 1. Urinary retention 2. urinary tract infection 3. multiple sclerosis 4. hypertension, untreated Plan of Treatment: discharge home with indwelling Hsu catheter medications as prescribed Discharge Plan Discharge Plan Patient Disposition: Home Provider Discharge Comment: needs outpatient primary doctor, refer to [facility] Discharge Comment: Needs instruction regarding hsu management Discharge orders & Medications Prescriptions: New levofloxacin 250 mg tablet 250 mg PO DAILY Qty: 7 RF: 0 lisinopril 10 mg tablet 10 mg PO DAILY Qty: 30 RF: 0 tamsulosin [Flomax] 0.4 mg Capsule 0.4 mg PO DAILY Qty: 30 RF: 0 Continued interferon beta-1a [Avonex] 30 MCG/0.5 ML syringe kit 30 mcg IM QWEEK Qty: 3 RF: 3 Follow up/Referrals: Nakita Smith MD [Physician] - (patient with urinary retention, post void residual of 1999, hsu catheter placed Patient has MS) Discharge Health Status Multidrug resistant organism: No MDRO Diet/Activity/Treatments Diet: Diet as Tolerated Catheter: 2-way Hsu Skin/Wound/Dressing Care Report to your healthcare provider any signs of infection, such as:: chills, fever Discharge Data Attending Provider: Fransisca Araujo
--- NOTE | 2020-04-20 11:06 | PT.IIE ---
Surgical History (Last Updated 04/19/20 @ 23:24 by Fransisca Araujo [facility]) History of tonsillectomy Medical History (Last Updated 04/19/20 @ 23:24 by Fransisca Araujo [facility]) Borderline hypertension Multiple sclerosis Physical Therapy Inpatient Evaluation/Re-Eval M1 PT/OT-IP Prior Functional Status Start: 04/20/20 09:26 Freq: NEEDED Status: Active Protocol: Document 04/20/20 11:06 AW (Rec: 04/20/20 12:16 AW [id number]) Medical Review Prior Functional Status Medical History Reviewed Yes Communication WNL. Pt is an effective verbal communicator. Mobility and Gait Pt uses a power wheelchair for household mobility and a scooter to get around in the community. He typically squat pivot transfers to his w/c without assist. He is able to drop the arm on his w/c. He states he fell twice a few weeks ago - once getting out of bed and once transferring to the toilet. When he fell from the toilet, he was down for several hours and inched his way to his phone. Pt does not deny regular falls. Activities of Daily Living and IADL's Pt reports he is independent with all ADL's. His daughter in law checks on him regularly . Pt denies having any consistent/scheduled help at home. Social History Household Members none Living Arrangements Apartment/Condo Number of Floors (Floors) One Floor Number of Stairs To Enter/Railing? Pt royal his scooter in the garage and climbs one step while holding on to the door jamb. He immediately transfers to a power chair set just inside the door. Home Environment Standard Height Toilet,Tub/ Shower Home Equipment Hand Held Shower Additional Social History Comment Pt states he transfers to the tub holding on to a wall. He transfers from his power chair to a tub chair lift which sets him down into the water. Pt lives alone in [place]. He has no PCP. M2 PT-IP Current Condition Start: 04/20/20 09:26 Freq: NEEDED Status: Active Protocol: Document 04/20/20 11:06 AW (Rec: 04/20/20 12:16 AW [id number]) Physical Therapy Current Condition Current Condition Evaluation Date 04/20/20 Treatment Diagnosis UTI, MS, weakness; impaired mobility Onset Date a few days Precautions Other Precautions falls M3 PT-IP Subjective Start: 04/20/20 09:26 Freq: NEEDED Status: Active Protocol: Document 04/20/20 11:06 AW (Rec: 04/20/20 12:16 AW [id number]) Subjective Physical Therapy Visit Type Type Initial Evaluation Visit Start Time 10:29 Visit Stop Time 11:06 Total Visit Minutes 37 Physical Therapy Visit Comments Patient Comments Pt is wililng to participate with PT. Patient Goals Return home. Therapy Pain Assessment Pain When Pain Assessed During Mobility Pain Present Pain Present Denied Pain M4 PT-IP Mobility and Gait Start: 04/20/20 09:26 Freq: NEEDED Status: Active Protocol: Document 04/20/20 11:06 AW (Rec: 04/20/20 12:16 AW [id number]) PT-Bed Mobility Assessment Supine to Sit Supine to Sit Contact Guard Assistance Sit to Supine Sit to Supine Contact Guard Assistance Scooting Scooting to Edge of Bed Contact Guard Assistance Scooting Up and Down in Bed Standby Assistance PT-Transfer Assessment Equipment Transfer Assistive Device Gait Belt Orthotic/Prosthetic Devices or Brace: No Transfers Transfer Destination Bed,Chair Transfer Technique Squat Pivot Transfer Ability Level of Assist Minimal Assistance Comments Mobility Comments Pt sat up on the bed but had difficulty maintaining sitting balance, necessitating CGA. My bed is sturdier than this. He was able to scoot toward EOB with CGA for balance which improved once he got his feet on the floor. Pt stated his w /c is typically set up on his right side. With chair set up at ~45 degrees to his right, pt was able to complete a squat pivot transfer to the chair and back to the bed min A x 1. Pt states in his normal environment with his own equipment, he is able to drop the arm on the w/c and complete the transfer without assist. PT is unable to reproduce this setup in the hospital room so can not verify. Gait Assessment Comments Gait Comments Unable. Stair Climbing Assessment Comments Stair Climbing Comments Unable PT-Balance Assessment Sitting Balance and Reactions Static Sitting Balance Ability Fair Dynamic Sitting Balance Ability Fair M5 PT-IP Objective Assessments Start: 04/20/20 09:26 Freq: NEEDED Status: Active Protocol: Document 04/20/20 11:06 AW (Rec: 02/28/21 12:16 AW [id number]) Orientation Orientation/Cognition Level of Alertness Alert Orientation Name,Day of Week,Place, Situation Language Function Ability No Deficits Noted Safety Awareness Understands Safety Issues, Decreased Safety Awareness Gross Range of Motion Upper Extremity ROM Assessment Within Functional Limits Lower Extremity ROM Assessment Within Functional Limits Strength Upper Extremity Strength Assessment Bilaterally Impaired Lower Extremity Strength Assessment Bilaterally Impaired Hip 3+/5 Knee 4-/5 Ankle 4-/5 Sensation Assessment Comments Sensation Comments Pt denies sensation disturbance. M6 PT-IP Treatment Start: 04/20/20 09:26 Freq: NEEDED Status: Active Protocol: Document 04/20/20 11:06 AW (Rec: 04/20/20 12:16 AW [id number]) Physical Therapy Treatment Education Education Provided Safety Other Treatments Other Treatment Performed Provided education on the role of PT, plan of care, and safe transfers. M7 PT-IP Assessment and Plan Start: 04/20/20 09:26 Freq: NEEDED Status: Active Protocol: Document 04/20/20 11:06 AW (Rec: 04/20/20 12:16 AW [id number]) PT Summary Assessment and Plan Potential Rehabilitation Potential Fair Status of Condition at Evaluation Stable Summary Impairments Strength,Balance,Bed Mobility, Transfers,Gait Assessment Summary Williams Marinelli is a 69 yo man with 35-year history of MS. He has no PCP and is admitted to medicine service with acute UTI secondary to retention as well as generalized weakness. He has had recent falls and was down several hours following one of those falls. He uses powered chair and scooter for all mobility at baseline and transfers without assist. On evaluation, pt's sitting balance is impaired and he requires min assist with transfers to and from a chair with immoveable arm. He typically drops the arm on his wheelchair for transfers but we are unable to simulate this transfer in the hospital. Pt would benefit from increased assist at home as well as home health PT. However, pt lacks a PCP which is a barrier to HH . PT will continue to follow. Goals Bed Mobility Goal Independent Transfer Goal Independent Days to Meet Goals 5 Frequency of Treatment Frequency Of Treatment Once a Day Treatment Plan Physical Therapy Treatment Plan Bed Mobility Training,Transfer Training,Therapeutic Exercise ,Balance Retraining,Discharge Planning,Neuromuscular Re-ed, Coordination Retraining Other Recommendations and Next Treatment bed mobility; sitting balance; Focus transfers with drop arm w/c Recommendations To Nursing Amount of Assist Needed 2 Person Assist Discharge Recommendations PT Discharge Recommendations Home with Assistance,Home Health Transportation Needs at Discharge Private Vehicle
[2020-04-20] MEDS: TAMSULOSIN 0.4 MG CAPSULE PO (11:48)
[2020-04-20 12:00] VITALS: BP 119/74; PULSE 82; RESP 19; TEMP 37.1; O2SAT 95
--- NOTE | 2020-04-20 13:46 | PC.NURSE ---
Discharge orders received. Home hsu catheter care and leg bag teaching discussed and leg bag placed. Patient states understanding and able to demonstrate competence. Discharge instructions, medication prescriptions and home care handouts discussed with patient and his son's girlfriend, they states understanding and patient is very eager to leave the hospital. Discharge planning spoke with patient and his son's girlfriend, and given resources. Strongly encouraged patient to call tomorrow (Tuesday) to establish care with a primary care doctor and set up for first appointment as soon as possible. Patient was instructed to schedule an appointment with urology as well. Prescriptions given to patient to fill at pharmacy of choice. Instructed to seek medical care of return to ER for return or worsening symptoms.
--- NOTE | 2020-04-20 15:30 | CM.DANOTE ---
DCP ASSESSMENT: Patient is a 69 year-old male admitted to the hospital with urinary retention and a history of MS. Patient currently does not have a PCP and reported he is not interested in establishing care with one at this time. Primary payer is Medicare and self-pay. [employer] student met with patient at bedside this date and educated on role of SW in discharge planning. Patient alert and oriented. Patient reports being independent at wheel chair level and physical therapies impression is he is at his base-line for transfers. Patient reported he does have some supports: director news help from son?s girlfriend Nicki and has [id number]. Patient reported he is interested in securing more caregiver support from son. Provided patient and family a Medicaid application, briefly described [place] if Medicaid is approved, list of local PCP providers and a senior resource guide for local supports. Patient will be D/C home with an indwelling catheter nursing to teach. Gently encouraged patient to establish care with PCP, provided patient with a list of local provider name: Establishing a PCP will allow for more medical intervention options if needed in the future, patient and family agreeable. Patient?s son?s girlfriend Nicki is to provide transportation. PLAN: Anticipate home when medically stable. CM Team to continue to follow. 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 No History Provided By Patient,Medical Record Has Patient been admitted in last 30 No days? Prior Living Arrangements Apartment/Condo Household Members none Type of transporation used prior to Relies on Others admit Independent with ADL's Yes Is patient alert and oriented? Yes Needs Assistance With Meal Prep Comment Has meals on wheels Caregiver for Another No Discharge Plan Home Transportation Arrangement Nicki will provide transportation home Whiteboard Updated in Patient Room with Yes name and ext. # of Flower Cutter
--- NOTE | 2020-04-24 14:16 | PC.NURSE ---
Late Entry; Rocephin infusion initiated 04/20 at 08:47, complete at 09:18.
== END 2020-04-20 13:35 | disposition home or self-care (01) ==
LOC: ED 21:24 → AC 21:27
PROVIDERS: Admitting Provider Nurse Practitioner Family; Emergency Provider Emergency Medicine; Referring Provider Emergency Medicine; Visit Provider Nurse Practitioner Family
DX: R33.9 Retention of urine, unspecified (principal); N39.0 Urinary tract infection, site not specified; G35 Multiple sclerosis; I10 Essential (primary) hypertension; Z20.822 Contact with and (suspected) exposure to COVID-19
CPT/HCPCS: 36415; 51798; 71045; 80048; 80053; 81001; 82550; 82553; 83605; 83690; 84145; 84153; 84484; 85025; 85610; 85730; 87040; 87077; 87086; 87186; 87635; 93005; 96361; 96365; 96366; 96372; 97162; 99283; 99284; C9803; G0378; J1650

== ENCOUNTER → 2020-06-02 16:14 | Outpatient (CLI) | payer MEDICARE, SELFPAY ==
[2020-04-19 22:51] VITALS: BMI 26.9
--- NOTE | 2020-06-02 16:16 | DI.US.S_ITS ---
PROCEDURE: US RENAL COMPLETE INDICATIONS: Retention of urine, unspecified TECHNIQUE: Real-time scanning was performed of the kidneys and bladder, with image documentation. COMPARISON: None. FINDINGS: Kidneys: Kidneys are normal in size. Right kidney measures 11.3 cm long; left kidney measures 11.2 cm long. Right renal cortical thickness is 1.7 cm; left renal cortical thickness is 2.0 cm. Renal cortical echotexture is normal. No hydronephrosis or nephrolithiasis. No suspicious solid mass lesions. Bilateral peripelvic cysts Bladder: Bladder emptied by an indwelling catheter. Miscellaneous: No free pelvic fluid. IMPRESSION: No hydronephrosis or nephrolithiasis. Multiple peripelvic cysts noted bilaterally. Bladder emptied by a catheter indwelling in place. Dictated by: Ankit Garsia M.D. on 06/02/2020 at 18:09 Approved by: Ankit Garsia M.D. on 06/02/2020 at 18:10
== END ==
PROVIDERS: Referring Provider Physician Assistant Medical; Visit Provider Physician Assistant Medical
DX: R33.9 Retention of urine, unspecified (principal); N28.1 Cyst of kidney, acquired
CPT/HCPCS: 76770